=== PATIENT | female | born 1950 | race Caucasian/White ===

== ENCOUNTER → 2019-08-22 | Day surgery (SDC) | payer OTHER, MEDICAID ==
[~2019-08-22] MED LIST: CARV6.2511 PO; FURO20TA3 PO; IV RINGERS,LACTATED 1000ML 1,000 ML IV ONE; LIDOCAINE 2% PF 5 ML VIAL. ONE; LISI-338 PO; PHEN200C3 PO; PRAV40TA2 PO; PROPOFOL 40 ML IV ONE; WARF7.5T45 PO; ePHEDrine PF IN SALINE 50 MG/10 ML SYRINGE. IV ONE
[2019-08-22 14:07] VITALS: BP 113/59
== END ==
LOC: SURG 11:47
PROVIDERS: ATTEND Internal Medicine Gastroenterology
DX: D50.9 Iron deficiency anemia, unspecified (principal); K29.50 Unspecified chronic gastritis without bleeding; K64.0 First degree hemorrhoids; K63.89 Other specified diseases of intestine; K44.9 Diaphragmatic hernia without obstruction or gangrene; F41.9 Anxiety disorder, unspecified; F32.9 Major depressive disorder, single episode, unspecified; I25.2 Old myocardial infarction; F15.90 Other stimulant use, unspecified, uncomplicated; Z88.5 Allergy status to narcotic agent; Z88.8 Allergy status to other drugs, medicaments and biological substances; Z88.6 Allergy status to analgesic agent; Z91.040 Latex allergy status; Z95.1 Presence of aortocoronary bypass graft; Z98.890 Other specified postprocedural states
CPT/HCPCS: 43235; 45378; J0171; J2001; J2704